=== PATIENT | female | born 2000 | race Caucasian/White ===

== ENCOUNTER 2023-06-22 21:19 | Emergency (ER) | payer MEDICAID ==
[~2023-06-22] VITALS: Ht 167.6 cm; Wt 92.5 kg
[2023-06-22 21:21] VITALS: BP_SYST 122; PULSE 91; RESP 18; TEMP 97.8; O2SAT 98
[2023-06-22 22:30] LABS: BASOPHILS % (AUTO) 0.4 % (0.0-2.0); EOSINOPHILS # (AUTO) 0.2 K/uL (0.0-0.4); EOSINOPHILS % (AUTO) 2.5 % (0.0-4.0); HEMATOCRIT 37.5 % (36-48); HEMOGLOBIN 12.3 g/dL (12.0-16.0); LYMPHOCYTES % (AUTO) 36.6 % (20.5-51.5); MEAN CORPUSCULAR HEMOGLOBIN 28 pg (27-31); MEAN CORPUSCULAR HGB CONC 33 % (32-36); MEAN CORPUSCULAR VOLUME 86 fL (79.0-98.0); MONOCYTES # (AUTO) 0.4 K/uL (0.0-1.0); MONOCYTES % (AUTO) 5.4 % (1.7-9.3); NEUTROPHILS # (AUTO) 4.5 K/uL (1.8-7.7); NEUTROPHILS % (AUTO) 55.1 % (40.0-70.0); PLATELET COUNT (AUTO) 269 K/uL (130-430); RED BLOOD CELL COUNT(AUTO) 4.35 MIL/uL (4.2-6.2); RED CELL DISTRIBUTION WIDTH 14.6 % (9.0-15.0); WHITE BLOOD COUNT (AUTO) 8.1 K/uL (4.8-10.8)
[2023-06-22 22:47] LABS: PROTHROMBIN TIME 10.2 SECS (9.5-12.5)
[2023-06-22 22:48] LABS: ALBUMIN 3.5 g/dL (3.4-4.8); CALCIUM 8.9 mg/dL (8.4-11.0); CREATININE 0.87 mg/dL (0.55-1.30); POTASSIUM 3.9 mmol/L (3.5-5.1); TOTAL BILIRUBIN 0.1 mg/dL (0.0-1.0); TOTAL PROTEIN, SERUM 7.8 g/dL (6.4-8.3)
[2023-06-23] MEDS ORDERED: KETOROLAC TROMETHAMINE 15 MG VIAL IM ONE (01:30)
[2023-06-23] MEDS ORDERED: IBUPROFEN 600 MG TABLET PO ONE (02:00)
[2023-06-23] MEDS ORDERED: IBUP-1969 PO (02:08)
[2023-06-23 02:31] VITALS: BP_SYST 125; PULSE 86; RESP 16; TEMP 98.1; O2SAT 99
== END 2023-06-23 02:31 | disposition home or self-care (01) ==
LOC: SED 21:19
DX: O20.9 Hemorrhage in early pregnancy, unspecified (principal); Z3A.01 Less than 8 weeks gestation of pregnancy; Z79.899 Other long term (current) drug therapy
CPT/HCPCS: 99284; 76830; 76857; 80053; 85025; 85610; 85730; 86886; 86900; 86901; 36415; J1885

== ENCOUNTER 2023-07-05 01:51 | Emergency (ER) | payer MEDICAID ==
[~2023-07-05] VITALS: Ht 167.6 cm; Wt 92.5 kg
[~2023-07-05 01:51] MED LIST: IBUP-1969 PO
[2023-07-05 01:59] VITALS: BP_SYST 116; PULSE 99; RESP 18; TEMP 97.7; O2SAT 97
[2023-07-05] MEDS ORDERED: PIPERACILLIN/TAZO 3.375 GM in NS 50 ML IV ONE (02:15)
[2023-07-05] MEDS ORDERED: KETOROLAC TROMETHAMINE 30 MG VIAL IVP ONE (02:15)
[2023-07-05] MEDS ORDERED: NACL 0.9% 1,000 ML IV ONE (02:15)
[2023-07-05] MEDS ORDERED: PIPERACILLIN/TAZOBACTAM 3.375 GM/VIAL (ZOSYN) IV ONE (02:31)
[2023-07-05 03:00] LABS: BASOPHILS % (AUTO) 0.3 % (0.0-2.0); EOSINOPHILS # (AUTO) 0.1 K/uL (0.0-0.4); EOSINOPHILS % (AUTO) 1.2 % (0.0-4.0); HEMATOCRIT 34.5 % (36-48); HEMOGLOBIN 11.1 g/dL (12.0-16.0); LYMPHOCYTES # (AUTO) 2.7 K/uL (1.0-5.5); LYMPHOCYTES % (AUTO) 26.8 % (20.5-51.5); MEAN CORPUSCULAR HEMOGLOBIN 28 pg (27-31); MEAN CORPUSCULAR HGB CONC 32 % (32-36); MEAN CORPUSCULAR VOLUME 87 fL (79.0-98.0); MONOCYTES # (AUTO) 0.8 K/uL (0.0-1.0); MONOCYTES % (AUTO) 7.5 % (1.7-9.3); NEUTROPHILS # (AUTO) 6.5 K/uL (1.8-7.7); NEUTROPHILS % (AUTO) 64.2 % (40.0-70.0); PLATELET COUNT (AUTO) 273 K/uL (130-430); RED BLOOD CELL COUNT(AUTO) 3.98 MIL/uL (4.2-6.2); RED CELL DISTRIBUTION WIDTH 14.2 % (9.0-15.0); WHITE BLOOD COUNT (AUTO) 10.2 K/uL (4.8-10.8)
[2023-07-05 03:17] LABS: CALCIUM 8.3 mg/dL (8.4-11.0); CREATININE 0.67 mg/dL (0.55-1.30); POTASSIUM 3.4 mmol/L (3.5-5.1)
[2023-07-05 03:21] LABS: TOTAL BILIRUBIN 0.2 mg/dL (0.0-1.0)
[2023-07-05] MEDS ORDERED: CIPR500T5 PO (04:05)
[2023-07-05] MEDS ORDERED: NAPR-1172 PO (04:05)
[2023-07-05 04:11] VITALS: BP_SYST 118; PULSE 97; RESP 18; TEMP 97.9; O2SAT 97
== END 2023-07-05 04:11 | disposition home or self-care (01) ==
LOC: SED 01:51
DX: L73.2 Hidradenitis suppurativa (principal); R19.09 Other intra-abdominal and pelvic swelling, mass and lump; Z79.899 Other long term (current) drug therapy
CPT/HCPCS: 99284; 96365; 80053; 85025; 87040; 36415; 83605; J2543; J7030; J1885